=== PATIENT | female | born 1955 ===

== ENCOUNTER → 2017-10-25 18:59 | Outpatient (REF) | payer MEDICARE, OTHER, SELFPAY ==
[2017-10-25 19:34] LABS: HEMOLYSIS < 15 (0-50); Iron 134 ug/dL (37-170)
[2017-10-25 19:44] LABS: Percent Iron Saturation 41 % (15-50); Total Iron Binding Capacity 327 ug/dL (265-497); Transferrin 290 mg/dL (206-381)
[2017-10-25 19:51] LABS: Free T3, Triiodothyronine Free 4.07 pg/mL (2.77-5.27); Free T4, Direct Thyroxine 1.06 ng/dL (0.78-2.19); Triiodothryronine T3 Uptake 35.7 % (23.5-40.5)
[2017-10-25 20:05] LABS: Thyroid Stimulating Hormone 1.92 uIU/mL (0.47-4.68)
[2017-10-25 20:11] LABS: Ferritin 38.9 ng/mL (11.1-264)
[2017-10-28 15:04] LABS: Thyroglobulin Antibodies < 1 IU/mL (< 2); Thyroglobulin Level 7.2 ng/mL (2.8-40.9); Thyroid Peroxidase Antibodies 94 IU/mL (< 9)
== END ==
LOC: LAB 18:59
PROVIDERS: Visit Provider Naturopath
DX: E03.9 Hypothyroidism, unspecified (principal)
CPT/HCPCS: 82728; 83540; 83550; 84432; 84439; 84443; 84479; 84481; 86376; 86800